=== PATIENT | male | born 1960 | race Caucasian/White ===

== ENCOUNTER 2023-10-10 15:24 | Emergency (ER) | payer MEDICARE, OTHER, SELFPAY ==
[2023-10-10 15:28] VITALS: BP 189/109; PULSE 105; RESP 20; TEMP 36.5; O2SAT 99; BMI 22.1
--- NOTE | 2023-10-10 15:36 | DI.RAD.S_ITS ---
PROCEDURE: XR CHEST 1V INDICATIONS: high blood pressure TECHNIQUE: One view of the chest was acquired. COMPARISON: None. FINDINGS: Surgical changes and devices: None. Lungs and pleura: No dense consolidation or pleural effusion Mediastinum: Normal heart size Bones and chest wall: No suspicious bony lesions. Overlying soft tissues appear unremarkable. IMPRESSION: No acute abnormality on this single view radiograph Dictated by: Ed Brown M.D. on 10/10/2023 at 16:36 Approved by: Ed Brown M.D. on 10/10/2023 at 16:37
--- NOTE | 2023-10-10 15:54 | EKG_ITS ---
[place] [id number] [place] [id number] Test Date: 2023-10-10 Pat Name: Matteo Milligan Department: [facility] Room: Gender: Male [employer]: ALAN : 1960 Requested By: Order Number: [id number] Reading MD: Cla Yang MD Measurements Intervals [place] Rate: 88 P: 68 WV: 154 QRS: -38 QRSD: 98 T: 70 QT: 360 QTc: 435 Interpretive Statements Sinus rhythm with premature supraventricular complexes Left axis deviation NO PRIOR TRACING Electronically Signed On 10-10-2023 16:35:11 PDT by Cal Yang MD
[2023-10-10 16:08] LABS: Add Manual Diff / Slide Review NO; Basophils Absolute Auto 0 /uL (0-100); Basophils Percent Auto 0.7 % (0-2); Eosinophils Absolute Auto 100 /uL (0-450); Hematocrit 37.9 % (41-53); Lymphocytes Absolute Auto 1100 /uL (1100-4500); Lymphocytes Percent Auto 18.8 % (25-40); Mean Corpuscular HGB Conc 34.2 % (30-36); Mean Corpuscular Hemoglobin 30.7 PG (26-34); Mean Corpuscular Volume 89.7 fL (80-100); Monocytes Absolute Auto 400 /uL (0-900); Monocytes Percent Auto 6.9 % (3-14); Neutrophils Absolute Auto 4200 /uL (1500-7000); Neutrophils Percent Auto 71.6 % (50-75); Platelet Count 231 X10^3/uL (150-400); Red Blood Cell Count 4.23 X10^6/uL (4.5-5.9); Red Cell Distribution Width 13.1 % (11.6-14.8); White Blood Cell Count 5.8 X10^3/uL (4.5-11.0)
--- NOTE | 2023-10-10 16:08 | PC.NURSE ---
patient reports being at the dentist and told his blood pressure was very high, systolic 180's. Patient states that they have no pain, figueroa, vision changes, n/v. Had two stents placed 6-7 years ago. this patient reports taking no medication currently
--- NOTE | 2023-10-10 16:18 | ED_ITS ---
HPI - General Adult General Chief complaint: Hypertension Stated complaint: WIC; Elevated BP Time Seen by Provider: 10/10/23 15:35 Source: patient Mode of arrival: Ambulatory History of Present Illness HPI narrative: Patient is a 63-year-old male who is here for evaluation of high blood pressure. He states that he went to the dental clinic today in order to have some work done and was told that his blood pressure was elevated and that he should check it again. He stated that he was then went to a local drug store and it was elevated. He has had a history of coronary artery disease. Had a stent placed about 10 years ago. Was put on blood pressure medications afterwards but after about a year he stopped them on his own. He takes no medications now. Does not have a primary doctor. Denies headache, chest pain, shortness of breath, abdominal pain, lower extremity swelling. He went to the walk-in clinic and was sent to the emergency department for further evaluation. Related Data Previous Rx's Medication Instructions Recorded lisinopril 10 mg tablet 10 mg PO DAILY #30 tabs 10/10/23 Allergies Allergy/AdvReac Type Severity Reaction Status Date / Time No Known Drug Allergies Allergy Unverified 09/15/22 10:39 Review of Systems Review of Systems ROS Unobtainable: All systems reviewed & are unremarkable except as noted in HPI and below Patient History Social History Smoking Status: Never smoker Smoking Status: Never smoker alcohol intake frequency: holidays/special occasions only Substance Use Type: does not use Exam Initial Vital Signs Initial Vital Signs: Vital Signs Temperature 97.7 F 10/10/23 15:28 Pulse Rate 105 H 10/10/23 15:28 Respiratory Rate 20 10/10/23 15:28 Blood Pressure 189/109 H 10/10/23 15:28 Pulse Oximetry 99 10/10/23 15:28 Oxygen Delivery Method Room Air 10/10/23 15:28 Const General: cooperative, comfortable and No ill appearing HENMT Head: normal to inspection and normocephalic Resp Effort & Inspection: normal respiratory effort Auscultation: clear to auscultation bilaterally Cardio Rate: regular rate Rhythm: regular rhythm Skin General: no rashes or lesions noted Neuro General: patient alert, patient awake and moves all extremities Extrem General: No edema Course Orders Ordered: ED Orders 10/10/23 15:36 XR chest 1V Stat EKG-12 Lead Stat 10/10/23 16:00 Complete Blood Count AUTO DIFF Stat Comprehensive Metabolic Panel Stat Lipase Stat Troponin & CK Cardiac Panel Stat Vital Signs Vital signs: Vital Signs - 8 hr 10/10/23 15:28 10/10/23 16:22 10/10/23 16:30 Temperature 97.7 F Pulse Rate 105 H 78 73 Respiratory Rate 20 20 15 Blood Pressure 189/109 H Pulse Oximetry 99 97 99 Oxygen Delivery Method Room Air 10/10/23 16:30 Temperature Pulse Rate Respiratory Rate Blood Pressure 206/96 H Pulse Oximetry Oxygen Delivery Method Medical Decision Making Lab Data 10/10/23 16:00 10/10/23 16:00 Labs: Lab Results 10/10/23 Range/Units 16:00 WBC 5.8 (4.5-11.0) X10^3/uL RBC 4.23 L (4.5-5.9) X10^6/uL Hgb 13.0 L (13.5-17.5) g/dL Hct 37.9 L (41-53) % MCV 89.7 (80-100) fL MCH 30.7 (26-34) PG MCHC 34.2 (30-36) % RDW 13.1 (11.6-14.8) % Plt Count 231 (150-400) X10^3/uL Neut % (Auto) 71.6 (50-75) % Lymph % (Auto) 18.8 L (25-40) % Addison % (Auto) 6.9 (3-14) % Eos % (Auto) 2.0 (2-4) % Baso % (Auto) 0.7 (0-2) % Neut # (Auto) 4200 (7477-6571) /uL Lymph # (Auto) 1100 (7980-0991) /uL Addison # (Auto) 400 (0-900) /uL Eos # (Auto) 100 (0-450) /uL Baso # (Auto) 0 (0-100) /uL Sodium 131 L (137-145) mmol/L Potassium 4.2 (3.4-5.1) mmol/L Chloride 97 L (98-107) mmol/L Carbon Dioxide 25 (22-32) mmol/L BUN 32 H (9-20) mg/dL Creatinine 1.45 H (0.66-1.25) mg/dL Estimated GFR 53 L (>60) mL/min BUN/Creatinine Ratio 22.1 H (6-22) Glucose 385 H (80-110) mg/dL Calcium 9.9 (8.4-10.2) mg/dL Total Bilirubin 0.7 (0.2-1.3) mg/dL AST 26 (17-59) IU/L ALT 25 (<50) IU/L Alkaline Phosphatase 60 (38-126) U/L Total Creatine Kinase 80 (55-170) U/L Troponin I < 0.012 (0.01-0.034) ng/mL Total Protein 7.7 (6.3-8.2) g/dL Albumin 4.7 (3.5-5.0) g/dL Globulin 3.0 (1.7-4.1) g/dL Albumin/Globulin Ratio 1.6 (1.0-2.8) Lipase 155 (23-300) U/L ECG Data Attestation: I personally reviewed and interpreted this ECG as follows: Interpretation: Sinus rhythm Ventricular rate of 88 Normal axis Left axis deviation Normal QRS No ST T wave changes MDM Narrative Medical decision making narrative: Patient has been hypertensive but he was asymptomatic. Low suspicion for acute kidney injury, renal failure, CHF, ACS or intracranial hemorrhage. I had a long discussion with him regarding his symptoms. He does have a history of coronary artery disease. Had a stent placed years ago and was on blood pressure medicines for short time afterwards but stopped taking that about a year later. He does not have a primary doctor. Plan will be to have him take his blood pressure at home for the next 10-14 days. If he was persistently greater than 140/90 then he can fill the prescription for blood pressure medicine that he was given here in the emergency department. I highly recommended that he make contact with the primary doctor. He was given return precautions. He expressed understanding and agreement. Discharge Plan Departure Patient Disposition: Home Clinical Impression: Hypertension Instructions: DI for High Blood Pressure Activity Restrictions/Additional Instructions: I highly recommend that you make contact with the primary doctor. You can contact [phone] during business hours to help you establish a primary doctor. I also recommend that you start taking your blood pressure at home on a daily basis for the next 10-14 days. If you are persistently greater than 140 on the top number or 90 on the bottom number that you start taking the blood pressure medicine that you were given a prescription for today as directed. Return to the emergency department for new or worsening symptoms. Prescriptions: New lisinopril 10 mg tablet 10 mg PO DAILY Qty: 30 2RF Referrals: Miscellaneous,Doctor, MD [Primary Care Provider] - Stand Alone Forms: Patient Portal/API
[2023-10-10 16:22] VITALS: PULSE 78; RESP 20; O2SAT 97
[2023-10-10 16:22] LABS: Alanine Aminotransferase 25 IU/L (<50); Albumin 4.7 g/dL (3.5-5.0); Albumin Globulin Ratio 1.6 (1.0-2.8); Alkaline Phosphatase 60 U/L (38-126); Aspartate Aminotransferase 26 IU/L (17-59); BUN Creatinine Ratio 22.1 (6-22); Bilirubin Total 0.7 mg/dL (0.2-1.3); Blood Urea Nitrogen 32 mg/dL (9-20); Calcium 9.9 mg/dL (8.4-10.2); Carbon Dioxide 25 mmol/L (22-32); Chloride 97 mmol/L (98-107); Creatine Kinase 80 U/L (55-170); Estimated Glomerular Filt Rate 53 mL/min (>60); Glucose 385 mg/dL (80-110); HEMOLYSIS 25 (0-50); Lipase 155 U/L (23-300); Potassium 4.2 mmol/L (3.4-5.1); Sodium 131 mmol/L (137-145); Total Protein 7.7 g/dL (6.3-8.2)
[2023-10-10 16:30] VITALS: BP 206/96; PULSE 73; RESP 15; O2SAT 99
[2023-10-10 16:34] LABS: Troponin I < 0.012 ng/mL (0.01-0.034)
[2023-10-10 17:01] VITALS: BP 199/96; PULSE 89; RESP 18; O2SAT 100
== END 2023-10-10 17:02 | disposition home or self-care (01) ==
PROVIDERS: Emergency Provider Emergency Medicine
DX: I10 Essential (primary) hypertension (principal); R07.9 Chest pain, unspecified
CPT/HCPCS: 36415; 71045; 80053; 82550; 83690; 84484; 85025; 93005; 93010; 99283; 99284